=== PATIENT | female | born 1955 | race Caucasian/White ===

== ENCOUNTER 2017-01-21 10:47 | Day surgery (SDC) | payer OTHER ==
[2017-01-14 10:48] VITALS: BMI 26.9
[2017-01-21] MEDS ORDERED: MIDAZOLAM HCL 2 MG/2 ML SINGLE DOSE VIAL ONE (11:49)
[2017-01-21] MEDS ORDERED: BUPIVACAINE HCL/PF 2.5 MG/ML - 30 ML VIAL IJ ONE (12:01)
[2017-01-21] MEDS ORDERED: BUPIVACAINE HCL/PF 0.25% (2.5MG/ML) 10 ML VIAL IJ ONE (13:03)
[2017-01-21] MEDS ORDERED: ONDANSETRON 4 MG/2 ML VIAL IVPUSH PRN (14:29)
[2017-01-21] MEDS ORDERED: oxyCODONE HCL 5 MG TABLET PO PRN (14:29)
[2017-01-21] MEDS ORDERED: LACTATED RINGERS SOLUTION 1,000 ML IV SCH (14:30)
--- NOTE | 2017-01-22 19:24 | OP ---
DATE OF OPERATION: 01/21/2017 PREOPERATIVE DIAGNOSIS: Left wrist mass. POSTOPERATIVE DIAGNOSIS: Left wrist mass. OPERATIVE PROCEDURES: 1. Left wrist mass excision. 2. Ligation of radial artery. ANESTHESIA: General. COMPLICATIONS: None. ESTIMATED BLOOD LOSS: Minimal. INDICATION FOR PROCEDURE: The patient is a 61-year-old female with the above findings, indicated for operative treatment. Risks, benefits, alternatives were discussed with the patient at length, proper informed consent was obtained. PROCEDURE: After proper identification of patient and correct operative site, patient brought to operating room, placed supine on operating table, prominences well padded. General anesthesia was provided by the anesthesiologist, adequate for procedure. Left upper extremity was prepped and draped in the usual sterile fashion. A well-padded tourniquet was placed with sterile prep. Esmarch bandage to exsanguinate left upper extremity, tourniquet inflated to 250 mmHg. A curvilinear incision was made over the volar radial aspect of the wrist. Incision was taken sharply through the skin with blunt and sharp dissection in subcutaneous tissues. The mass was found to be a multiloculated cystic structure and it was enwrapping several branches of the radial artery. Extensive careful dissection was performed. Once section, however, the wall of the cyst was essentially the wall of the radial artery. Once the mass was completely dissected off of the radial artery, it was excised in whole and sent for pathological evaluation. Tourniquet was released, and in the area of adhesion, the branch of the radial artery was found to be bleeding. The area was gently clamped to stop bleeding and flow to the hand and vascular area was found to be excellent. At this point the tourniquet was reinflated and the radial artery in this area was ligated with 3-0 Vicryl suture. Tourniquet was then released again and there was no further bleeding and the hand was well perfused. The wound was irrigated with saline and repaired with a 5-0 nylon suture. Sterile dressings were applied. Patient was reversed from anesthesia and brought to the recovery room in stable condition. She tolerated procedure well. Han [id number]
[2017-01-23 14:51] VITALS: BP 134/74; PULSE 71; TEMP 97.9
--- NOTE | 2017-01-23 16:01 | PATH ---
Surgical Pathology Report Patient Name: HUNTER WILSON [facility]. Rec. #: [id number] /Age/Gender: 1955 (Age: 61) / F Account: [id number] Location: [facility] Taken: 01/21/2017 Received: 01/21/2017 Reported: 01/23/2017 Physicians: Fabian Torres M.D. Specimen(s) Received LEFT WRIST MASS Clinical History Left wrist mass Final Diagnosis WRIST, LEFT, MASS, EXCISION: GANGLION CYST. Electronically Signed Starr Tirado M.D. Gross Description Received in formalin labeled "left wrist mass," is a 2.2 x 1.1 x 0.4 cm harper, irregular portion of soft tissue, possibly consistent with a cyst. The lumen contains mucinous material. The specimen is bisected and entirely submitted in one cassette. /01/22/201701/22/2017
== END 2017-01-21 16:45 | disposition home or self-care (01) ==
LOC: FASU 10:47
PROVIDERS: ATTEND Orthopaedic Surgery Hand Surgery
PROC: 03QC0ZZ Repair Left Radial Artery, Open Approach (ICD-10-PCS; 2017-01-21)
PROC: 0XBH0ZZ Excision of Left Wrist Region, Open Approach (ICD-10-PCS; principal; 2017-01-21 12:00)
DX: M67.432 Ganglion, left wrist (principal)
CPT/HCPCS: 88304-TC; 94760

== ENCOUNTER 2017-07-08 07:34 | Day surgery (SDC) | payer OTHER ==
[2017-07-02 11:37] VITALS: BMI 26.4
[2017-07-08] MEDS ORDERED: LIDOCAINE HCL 2% (20ML MULTI-DOSE VIAL) NR ONE (08:42)
[2017-07-08] MEDS ORDERED: BUPIVACAINE HCL/PF 2.5 MG/ML - 30 ML VIAL IJ ONE (08:42)
[2017-07-08] MEDS ORDERED: ONDANSETRON 4 MG/2 ML VIAL IVPUSH PRN (08:44)
[2017-07-08] MEDS ORDERED: oxyCODONE HCL 5 MG TABLET PO PRN ×2 (08:44→10:04)
[2017-07-08] MEDS ORDERED: ACETAMINOPHEN 325 MG TABLET (FP) PO PRN (08:44)
[2017-07-08] MEDS ORDERED: LACTATED RINGERS SOLUTION 1,000 ML IV SCH (08:45)
[2017-07-08] MEDS ORDERED: MIDAZOLAM HCL 2 MG/2 ML SINGLE DOSE VIAL ONE (09:03)
[2017-07-08] MEDS ORDERED: PROPOFOL 20 ML ONE (09:03)
[2017-07-08] MEDS ORDERED: LIDOCAINE HCL 2% JELLY (5 ML/TUBE) ONE (09:09)
[2017-07-08] MEDS ORDERED: ceFAZolin SODIUM 1 GM VIAL ONE (09:09)
[2017-07-08] MEDS ORDERED: ONDANSETRON 4 MG/2 ML VIAL ONE (09:42)
[2017-07-08] MEDS ORDERED: DEXAMETHASONE SOD PHOSPHATE 4 MG/1 ML VIAL ONE (09:42)
[2017-07-08 13:53] VITALS: BP 120/62; PULSE 67; TEMP 97.9
--- NOTE | 2017-07-09 13:51 | PATH ---
Surgical Pathology Report Patient Name: HUNTER WILSON [facility]. Rec. #: [id number] /Age/Gender: 1955 (Age: 62) / F Account: [id number] Location: [facility] Taken: 07/08/2017 Received: 07/08/2017 Reported: 07/09/2017 Physicians: Fabian Torres M.D. Specimen(s) Received LEFT WRIST MASS Clinical History Left wrist mass Final Diagnosis SOFT TISSUE, LEFT WRIST, EXCISION: GANGLION CYST. Electronically Signed Cody Matos M.D. Gross Description Received in formalin labeled "left wrist mass," is a 1.9 x 1.5 x 1.2 cm harper, irregular portion of soft tissue, consistent with a cyst. The cyst lumen contains mucinous material. Paraprofessional Aide sections are submitted in one cassette. /07/08/2017 saudi/07/08/2017
--- NOTE | 2017-07-10 08:46 | OP ---
DATE OF OPERATION: 07/08/2017 PREOPERATIVE DIAGNOSIS: Left wrist mass. POSTOPERATIVE DIAGNOSIS: Left wrist mass. OPERATIVE PROCEDURE: Left wrist mass excision. SURGEON: Fabian Torres MD ANESTHESIA: General. COMPLICATIONS: None. ESTIMATED BLOOD LOSS: Minimal. INDICATION FOR PROCEDURE: Patient is a 62-year-old female with the above finding, indicated for operative treatment. Risks, benefits, and alternatives were discussed with the patient at length. Proper informed consent was obtained. PROCEDURE: After proper identification of the patient and the correct operative site, the patient was brought to the operating room and placed supine on the operating table. Prominences were well padded. General anesthesia was provided by the anesthesiologist and adequate for the procedure. The left upper extremity was prepped and draped in the usual sterile fashion. A well-padded tourniquet was placed with a sterile prep. Patient's prior incision was used, and this was on the radial, slightly volar aspect of the wrist. Incision was taken sharply through the skin, with meticulous blunt and sharp dissection through the subcutaneous tissues, taking care to protect branches of the sensory nerves in the area as well as the radial artery. The mass was found to be a cystic structure emanating from the radial carpal joint. It was excised in whole and sent for pathological evaluation. The wound was irrigated with saline. Tourniquet was released. Bleeding was controlled with bipolar electrocautery. Wound was repaired using 4-0 Vicryl and 4-0 nylon suture. Sterile dressings were applied. Patient was reversed from anesthesia and brought to the recovery room in stable condition. She tolerated the procedure well. Han HOWARD/[id number]
== END 2017-07-08 13:10 | disposition home or self-care (01) ==
LOC: FASU 07:34
PROVIDERS: ATTEND Orthopaedic Surgery Hand Surgery
PROC: 0RBP0ZZ Excision of Left Wrist Joint, Open Approach (ICD-10-PCS; principal; 2017-07-08 09:02)
DX: M67.432 Ganglion, left wrist (principal)
CPT/HCPCS: 88304-TC; 94760